=== PATIENT | male | born 1990 | race Caucasian/White ===

== ENCOUNTER → 2023-08-07 | Outpatient (CLI) | payer BC ==
--- NOTE | 2023-08-07 19:57 | XR ---
EXAMINATION TYPE: XR cervical spine comp DATE OF EXAM: 08/07/2023 3:53 PM CLINICAL INDICATION:Male, 33 years old with history of M25.511 PAIN IN RIGHT SHOULDER M54.2 CERVICALG [place]; [facility] COMPARISON: None TECHNIQUE: The cervical spine was imaged in frontal, lateral, odontoid and bilateral oblique. FINDINGS: The osseous structures show normal alignment without evidence of an acute fracture. There is minimal osteophytes noted throughout the cervical spine on the anterior and lateral aspects of the vertebral bodies. The intervertebral disk spaces are narrowed at multiple levels. Pedicles are intact. Soft ti ssues are within normal limits. The odontoid appears intact. IMPRESSION: 1. No fracture or dislocation. 2. Mild degenerative disc disease changes of the cervical spine.
--- NOTE | 2023-08-07 19:58 | XR ---
EXAMINATION TYPE: XR shoulder complete RT DATE OF EXAM: 08/07/2023 3:53 PM CLINICAL INDICATION:Male, 33 years old with history of M25.511 PAIN IN RIGHT SHOULDER M54.2 CERVICALG [place]; [facility] COMPARISON: None TECHNIQUE: XR shoulder complete RT; examined in AP, internally rotated and scapular Y projections. FINDINGS: No evidence of acute osseous pathology, joint dislocation, or soft tissue swelling. The remaining po rtions of the visualized chest are unremarkable. IMPRESSION: No acute osseous pathology.
[2023-08-08 05:33] LABS: ALT 46 U/L (10-49); AST 30 U/L (14-35); Albumin 4.8 g/dL (3.8-4.9); Albumin/Globulin Ratio 1.66 Ratio (1.60-3.17); Alkaline Phosphatase 52 U/L (41-126); Blood Urea Nitrogen 15.4 mg/dL (9.0-27.0); Calcium 10.2 mg/dL (8.7-10.3); Carbon Dioxide 24.3 mmol/L (21.6-31.8); Chloride 102 mmol/L (96-109); Globulin 2.9 g/dL (1.6-3.3); Glucose 105 mg/dL (70-110); Potassium 4.4 mmol/L (3.5-5.5); Sodium 139 mmol/L (135-145); T4, Free (Free Thyroxine) 1.12 ng/dL (0.80-1.80); Total Bilirubin 0.2 mg/dL (0.3-1.2); Total Protein 7.7 g/dL (6.2-8.2)
[2023-08-08 05:34] LABS: Basophils # (A) 0.09 X 10*3/uL (0.00-0.10); Basophils % (A) 1.1 %; Eosinophils # (A) 0.28 X 10*3/uL (0.04-0.35); Eosinophils % (A) 3.5 %; HGB 15.3 g/dL (13.0-17.0); Lymphocytes # (A) 3.05 X 10*3/uL (0.90-5.00); Lymphocytes % (A) 37.6 %; MCHC 33.3 g/dL (32.0-37.0); MCV 87.3 FL (80.0-97.0); Monocytes # (A) 0.77 X 10*3/uL (0.20-1.00); Monocytes % (A) 9.5 %; NRBC Per 100 WBC 0 X 10*3/uL (0.00-0.01); Neutrophils # (A) 3.91 X 10*3/uL (1.80-7.70); Neutrophils % (A) 48.2 %; Platelet Count 361 X 10*3/uL (140-440); RBC 5.27 X 10*6/uL (4.40-5.60); RDW 12.6 % (11.5-14.5); WBC 8.11 X 10*3/uL (4.50-10.00)
== END | disposition home or self-care (01) ==
LOC: RADXRMAIN 15:26
PROVIDERS: ATTEND Family Medicine
DX: Z00.00 Encounter for general adult medical examination without abnormal findings (principal); Z13.1 Encounter for screening for diabetes mellitus; M50.30 Other cervical disc degeneration, unspecified cervical region; M25.511 Pain in right shoulder
CPT/HCPCS: 36415; 72050; 80053; 83036; 84439; 84443; 85025